=== PATIENT | female | born 1990 | race Caucasian/White ===

== ENCOUNTER 2022-04-22 02:11 | Inpatient (IN) | payer MEDICAID ==
[~2022-04-22] VITALS: Ht 172.7 cm; Wt 72.0 kg
--- NOTE | 2022-04-22 04:05 | NUR ---
PATIENT TO CT AND BACK WITH TECH VIA W/C.
[2022-04-22] MEDS ORDERED: meclizine 12.5mg tablet PO ONE (05:40)
[2022-04-22] MEDS ORDERED: acetaminophen 325mg tablet PO PRN ×2 (08:00)
[2022-04-22] MEDS ORDERED: magnesium 4gm in 100ml NS 100 ML IV PRN (08:00)
[2022-04-22] MEDS ORDERED: HYDROcodone/acetaminophen 10/325mg tab PO PRN (08:00)
[2022-04-22] MEDS ORDERED: magnesium Cl slow-release 64mg tablet PO PRN (08:00)
[2022-04-22] MEDS: K and/or MAG REPLACEMENT MC SCH ×2 (08:00→20:00)
[2022-04-22] MEDS ORDERED: POTASSIUM BICARB 20meq eff tab 20 MEQ TABLET.EFF PO PRN ×2 (08:00)
[2022-04-22] MEDS ORDERED: morphine 2 MG/ML inj. syringe IV PRN ×2 (08:00)
[2022-04-22] MEDS ORDERED: ondansetron/PF 4mg/2ml inj IV PRN (08:00)
[2022-04-22] MEDS ORDERED: magnesium hydroxide 30ml (MOM) UD suspension PO PRN (08:00)
[2022-04-22] MEDS ORDERED: HYDROcodone/acetaminophen 5mg/325mg tablet PO PRN (08:00)
[2022-04-22] MEDS ORDERED: magnesium 2GM in 50ml NS 50 ML IV PRN (08:00)
[2022-04-22] MEDS ORDERED: potassium CL 10mEq/100ml bag 100 ML IV PRN (08:00)
[2022-04-22 09:47] LABS: BASOPHILS % (AUTO) 0.7 % (0-1); EOSINOPHILS # (AUTO) 0.2 X10'3 (0-0.9); EOSINOPHILS % (AUTO) 3.4 % (0-6); HEMATOCRIT 35.6 % (35.0-45.0); LYMPHOCYTES # (AUTO) 2.6 X10'3 (1.1-4.8); LYMPHOCYTES % (AUTO) 40.3 % (21-51); MEAN CORPUSCULAR HEMOGLOBIN 30.9 PG (27.0-31.0); MEAN CORPUSCULAR HGB CONC 33.6 g/dL (33.0-36.5); MEAN PLATELET VOLUME 7.3 FL (7.4-10.4); MONOCYTES # (AUTO) 0.6 X10'3 (0-0.9); MONOCYTES % (AUTO) 8.6 % (2-12); NEUTROPHILS # (AUTO) 3.1 X10'3 (1.8-7.7); PLATELET COUNT 314 X10'3 (140-440); RED BLOOD COUNT 3.88 X10'6 (4.20-5.60); RED CELL DISTRIBUTION WIDTH 13.1 % (11.5-14.5); WHITE BLOOD COUNT 6.5 X10'3 (4.5-11.0)
[2022-04-22] MEDS: heparin, porcine 5000 units/ml vial SQ SCH ×2 (10:00→19:54)
[2022-04-22 10:06] LABS: ALANINE AMINOTRANSFERASE 18 U/L (12-78); ALBUMIN 3.1 G/DL (3.4-5.0); ALBUMIN/GLOBULIN RATIO 0.9 (1.1-1.5); ALKALINE PHOSPHATASE 77 IU/L (46-116); ANION GAP 7 (8-16); ASPARTATE AMINO TRANSFERASE 24 U/L (10-37); BILIRUBIN,TOTAL 0.3 MG/DL (0.1-1.0); BLOOD UREA NITROGEN 11 MG/DL (7-18); BUN/CREATININE RATIO 16.2 (6.6-38.0); CHLORIDE 108 MMOL/L (99-107); CREATININE 0.68 MG/DL (0.40-0.90); GLUCOSE 108 MG/DL (70-104); POTASSIUM 3.4 MMOL/L (3.5-5.1); SODIUM 141 MMOL/L (135-145); TOTAL CARBON DIOXIDE 25.9 MMOL/L (24-32); TOTAL PROTEIN 6.5 G/DL (6.4-8.2); eGFR > 90 ML/MIN
--- NOTE | 2022-04-22 11:35 | NUR ---
Page sent to Dr Knight to inform her MRI has been read.
[2022-04-22 13:16] LABS: URINE AMPHETAMINE SCREEN POSITIVE (Neg); URINE BARBITUATE SCREEN NEGATIVE (Neg); URINE BENZODIAZEPINES SCREEN NEGATIVE (Neg); URINE CANNABINOID SCREEN POSITIVE (Neg); URINE COCAINE SCREEN NEGATIVE (Neg); URINE METHADONE SCREEN NEGATIVE (Neg); URINE OPIATE SCREEN NEGATIVE (Neg); URINE PHENCYCLIDINE SCREEN NEGATIVE (Neg)
[2022-04-22 13:25] LABS: COLOR,URINE YELLOW (Yellow); GLUCOSE, URINE NEGATIVE (Neg); KETONES,URINE NEGATIVE (Neg); LEUKOCYTE ESTERASE ,URINE NEGATIVE (Neg); NITRITES, URINE NEGATIVE (Neg); OCCULT BLOOD,URINE MODERATE (Neg); UROBILINOGEN,URINE 0.2 E.U/dL (0.2-1.0)
[2022-04-22 13:38] LABS: PH,URINE 6.5 (4.8-8.0); PROTEIN,URINE NEGATIVE (Neg)
[2022-04-22 13:39] LABS: CLARITY,URINE CLOUDY (Clear); UA COLLECTION TYPE VOIDED
[2022-04-22 13:41] LABS: BACTERIA,URINE 3+ /HPF (Neg); SQUAMOUS EPITHELIAL CELL,UR NONE SEEN /LPF (FEW)
[2022-04-22 13:42] LABS: CAL OXALATE CRYSTALS 1+ /HPF (NEGATIVE)
[2022-04-22 13:44] LABS: AMORPHOUS PHOSPHATES 2+
[2022-04-22] MEDS: normal saline 1000ml 1,000 ML IV SCH ×2 (15:15→18:00)
[2022-04-22 15:30] VITALS: BP 132/80
[2022-04-22 18:00] VITALS: BP 136/85
[2022-04-22] MEDS ORDERED: GADOTERATE MEGLUMINE 7.5 MMOL/15 ML VIAL IV ONE (18:09)
--- NOTE | 2022-04-22 18:26 | NUR ---
Problems reprioritized. Patient report given, questions answered & plan of care reviewed with EVA Alvares.
[2022-04-22] MEDS ORDERED: NO HOME MEDS (19:43)
[2022-04-22] MEDS: ciprofloxacin/D5W 200mg/100mL 100 ML IV SCH ×2 (19:49→20:00)
[2022-04-22] MEDS ORDERED: temazepam 15mg capsule PO PRN (21:00)
[2022-04-22 22:00] VITALS: BP 138/88
[2022-04-23] MEDS: normal saline 1000ml 1,000 ML IV SCH ×2 (01:17→01:40)
[2022-04-23 06:00] VITALS: BP 125/82
--- NOTE | 2022-04-23 06:23 | NUR ---
Patient in room [facility]010. I have received report from EVA Alvarse and had the opportunity to ask questions and assume patient care.
[2022-04-23 06:28] LABS: BASOPHILS # (AUTO) 0.1 X10'3 (0-0.2); EOSINOPHILS # (AUTO) 0.3 X10'3 (0-0.9); EOSINOPHILS % (AUTO) 4.7 % (0-6); HEMATOCRIT 34.5 % (35.0-45.0); HEMOGLOBIN 11.4 g/dl (12.0-16.0); LYMPHOCYTES % (AUTO) 49.5 % (21-51); MEAN CORPUSCULAR HEMOGLOBIN 30.6 PG (27.0-31.0); MEAN CORPUSCULAR HGB CONC 33.1 g/dL (33.0-36.5); MEAN CORPUSCULAR VOLUME 92.3 FL (78-98); MEAN PLATELET VOLUME 7.4 FL (7.4-10.4); MONOCYTES # (AUTO) 0.7 X10'3 (0-0.9); MONOCYTES % (AUTO) 10.9 % (2-12); NEUTROPHILS % (AUTO) 33.9 % (42-75); PLATELET COUNT 299 X10'3 (140-440); RED BLOOD COUNT 3.74 X10'6 (4.20-5.60); RED CELL DISTRIBUTION WIDTH 12.8 % (11.5-14.5)
[2022-04-23 06:42] LABS: ALANINE AMINOTRANSFERASE 15 U/L (12-78); ALBUMIN 2.7 G/DL (3.4-5.0); ALBUMIN/GLOBULIN RATIO 0.9 (1.1-1.5); ALKALINE PHOSPHATASE 80 IU/L (46-116); ANION GAP 5 (8-16); ASPARTATE AMINO TRANSFERASE 9 U/L (10-37); BLOOD UREA NITROGEN 12 MG/DL (7-18); BUN/CREATININE RATIO 17.4 (6.6-38.0); CALCIUM 8.5 MG/DL (8.5-10.1); CHLORIDE 109 MMOL/L (99-107); CREATININE 0.69 MG/DL (0.40-0.90); GLUCOSE 97 MG/DL (70-104); POTASSIUM 3.8 MMOL/L (3.5-5.1); SODIUM 139 MMOL/L (135-145); TOTAL CARBON DIOXIDE 25.2 MMOL/L (24-32); TOTAL PROTEIN 5.8 G/DL (6.4-8.2); eGFR > 90 ML/MIN
[2022-04-23 06:49] LABS: BILIRUBIN,TOTAL 0.1 MG/DL (0.1-1.0)
[2022-04-23] MEDS: heparin, porcine 5000 units/ml vial SQ SCH (07:04)
[2022-04-23] MEDS: K and/or MAG REPLACEMENT MC SCH (07:04)
[2022-04-23] MEDS: ciprofloxacin/D5W 200mg/100mL 100 ML IV SCH ×2 (07:06→07:09)
[2022-04-23 10:00] VITALS: BP 127/85
[2022-04-23] MEDS ORDERED: CIPR-259 PO (11:22)
--- NOTE | 2022-04-23 12:58 | NUR ---
Patient discharge home, discharge instructions was review with patient who verbalize understanding. Staff assist patient to parking lot where her vehicle was parked with all belongings.
== END 2022-04-23 12:15 | disposition home or self-care (01) | DRG 463 ==
LOC: ER 02:13 → INTOOBSV 08:05 → ED HOLD 08:05 → OBSVTOIN 13:04 → ORTHO 4S 15:00
PROVIDERS: ADMIT Internal Medicine; ATTEND Internal Medicine
DX: N39.0 Urinary tract infection, site not specified (principal); S09.90XA Unspecified injury of head, initial encounter; F12.10 Cannabis abuse, uncomplicated; F15.10 Other stimulant abuse, uncomplicated; X58.XXXA Exposure to other specified factors, initial encounter; W20.8XXA Other cause of strike by thrown, projected or falling object, initial encounter; F17.210 Nicotine dependence, cigarettes, uncomplicated; Z87.828 Personal history of other (healed) physical injury and trauma; Y92.89 Other specified places as the place of occurrence of the external cause; Y99.8 Other external cause status
CPT/HCPCS: 36415; 70450; 70553; 80053; 80305; 81001; 83605; 84443; 85025; 85651; 87040; 87077; 87081; 87088; 87186; 97161; 97530; 99285; A9575; G0378; J0744; J7030; J8597

== ENCOUNTER 2022-09-14 02:36 | Emergency (ER) | payer MEDICAID ==
[~2022-09-14] VITALS: Ht 172.7 cm; Wt 72.7 kg
[2022-09-14 02:38] VITALS: BP 153/98
== END 2022-09-14 04:07 | disposition home or self-care (01) ==
LOC: ER 02:37
DX: J40 Bronchitis, not specified as acute or chronic (principal); F17.200 Nicotine dependence, unspecified, uncomplicated; F12.10 Cannabis abuse, uncomplicated; Z90.49 Acquired absence of other specified parts of digestive tract
CPT/HCPCS: 71046; 99283